=== PATIENT | male | born 1965 | race American Indian/Alaskan Native ===

== ENCOUNTER 2016-11-09 15:51 | Emergency (ER) | payer MEDICARE ==
[2016-11-09 15:56] VITALS: BMI 24.3
[2016-11-09 15:59] VITALS: TEMP 98.2
--- NOTE | 2016-11-09 16:54 | RAD ---
HISTORY: left sided chest pain COMPARISON: No prior. FINDINGS: LUNGS: No active pulmonary disease. PLEURA: No significant pleural effusion identified, no pneumothorax apparent. CARDIOVASCULAR: Normal. OSSEOUS STRUCTURES: No significant abnormalities. VISUALIZED UPPER ABDOMEN: Normal. OTHER FINDINGS: None. IMPRESSION: No active disease.
[2016-11-09 17:16] LABS: BASO # 0.04 K/mm3 (0.0-2.0); BASO % 0.5 % (0.0-3.0); EOS # 0.3 (0.0-0.7); EOS % 4.3 % (1.5-5.0); GRAN # 4.16 (1.4-6.5); GRAN % 55.3 % (50.0-68.0); HEMATOCRIT 42.3 % (42.0-52.0); LYMPH # 2.2 (1.2-3.4); LYMPH % 28.9 % (22.0-35.0); MEAN CELL VOLUME 83.3 fl (80.0-105.0); MEAN CORPUSCULAR HEMOGLOBIN 27.8 pg (25.0-35.0); MEAN CORPUSCULAR HGB CONC 33.3 g/dl (31.0-37.0); MEAN PLATELET VOLUME 9.3 fl (7.0-11.0); MONO # 0.8 (0.1-0.6); WHITE BLOOD COUNT 7.5 10^3/ul (4.5-11.0)
[2016-11-09 17:19] LABS: ALB/GLOB RATIO 1.4 (1.1-1.8); ALKALINE PHOSPHATASE 77 U/L (38-126); ALT/SGPT 37 U/L (7-56); AST/SGOT 46 U/L (17-59); BLOOD UREA NITROGEN 21 mg/dL (7-21); CALCIUM 9.4 mg/dL (8.4-10.5); CARBON DIOXIDE 26 mmol/L (21-33); CHLORIDE 104 mmol/L (98-107); GFR AFRICAN-AMERICAN > 60; GLUCOSE,RANDOM 84 mg/dL (70-110); POTASSIUM 4.3 mmol/L (3.6-5.0); SODIUM 141 mmol/L (132-148); TOTAL PROTEIN 7.9 g/dL (5.8-8.3)
[2016-11-09 17:20] LABS: INR 0.93 (0.93-1.08); PARTIAL THROMBOPLASTIN TIME 27.4 Seconds (23.7-30.8)
[2016-11-09 17:31] LABS: TROPONIN I 0.02 ng/mL
[2016-11-09 17:38] VITALS: RESP 16; O2SAT 96
--- NOTE | 2016-11-09 17:58 | ED PDOC ---
Arrival/HPI - General Chief Complaint: Chest Pain Time Seen by Provider: 11/09/16 16:00 Historian: Patient - History of Present Illness Narrative History of Present Illness (Text): 11/09/16 18:03 Patient is a 51 yo male, denies any past medical history, presents to the ED stating that he has been having left sided chest "pressure" "for a while". Patient states he believes he has been having pain for "about a month". He reports that he frequently goes to the gym and lifts weights. He states "possibly" pain is worse when moving or lifting. States pain is now constant, at times worse with exertion. Denies pleuritic pain. Denies calf pain. Denies abdominal pain or nausea or vomiting. Denies lightheadedness or dizziness. Patient states that he smokes occasionally, and drinks "about once a week". Denies any dark or bloody urine or stool. Time/Duration: Prior to Arrival, > month Past Medical History - Infectious Disease Hx of Infectious Diseases: None - Tetanus Immunization Tetanus Immunization: Unknown - Past Medical History Past Medical History: No Previous - Psychiatric Hx Psychophysiologic Disorder: No Hx Anxiety: No Hx Bipolar Disorder: No Hx Depression: No Hx Emotional Abuse: No Hx Hallucinations: No Hx Panic Disorder: No Hx Post Traumatic Stress Disorder: No Hx Psychosis: No Hx Physical Abuse: No Hx Schizophrenia: No Hx Sexual Abuse: No Hx Substance Use: No - Surgical History Hx Orthopedic Surgery: Yes (left leg) - Anesthesia Hx Anesthesia: Yes Hx Anesthesia Reactions: No Hx Malignant Hyperthermia: No - Suicidal Assessment Feels Threatened In Home Enviroment: No Family/Social History Family/Social History: CAD/AK Smoking Status: cigar Hx Alcohol Use: Yes Frequency of alcohol use: Socially Hx Substance Use: No Hx Substance Use Treatment: No Allergies/Home Meds Allergies/Adverse Reactions: Allergies No Known Allergies Allergy (Verified 08/31/14 09:19) Home Medications: Home Meds Medication Instructions Recorded Confirmed No Known Home Med 11/09/16 11/09/16 Review of Systems - Review of Systems Constitutional: Fatigue. absent: Fevers Eyes: absent: Vision Changes, Eye Pain ENT: absent: Hearing Changes Respiratory: absent: SOB, Cough Cardiovascular: Chest Pain, QU[place]A. absent: Palpitations, Edema, Calf Pain, Orthopnea Gastrointestinal: absent: Abdominal Pain, Nausea, Vomiting Genitourinary Male: absent: Dysuria, Frequency Musculoskeletal: absent: Back Pain Skin: absent: Rash Neurological: absent: Headache, Dizziness, Focal Weakness Endocrine: absent: Polyuria Hemo/Lymphatic: absent: Easy Bleeding Psychiatric: absent: Depression Physical Exam Vital Signs Reviewed: Yes Vital Signs Temp Pulse Pulse Resp BP BP Pulse Ox 11/09/16 18:04 89 176/114 H 11/09/16 17:38 85 16 165/102 H 96 11/09/16 16:42 77 181/102 H 11/09/16 15:58 98.2 F 77 18 182/97 H 99 Temperature: Afebrile Blood Pressure: Hypertensive Pulse: Regular Respiratory Rate: Normal Appearance: Positive for: Non-Toxic Mental Status: Positive for: Alert and Oriented X 3 - Systems Exam Head: Present: Atraumatic, Normocephalic Pupils: Present: PERRL Extroacular Muscles: Present: EOMI Mouth: Present: Moist Mucous Membranes Pharnyx: No: ERYTHEMA Nose (Internal): Present: Normal Inspection Neck: Present: Normal Range of Motion. No: Meningeal Signs Respiratory/Chest: Present: Clear to Auscultation, Tender to Palpation (there is palpable tenderness to left pectoral region with no obvious erythema or edema or deformity). No: Respiratory Distress, Wheezes, Rales, Rhonchi Cardiovascular: Present: Regular Rate and Rhythm. No: Murmurs, Tachycardic Abdomen: Present: Normal Bowel Sounds. No: Tenderness, Distention, Peritoneal Signs Rectal: No: Rectal Tenderness Back: No: CVA Tenderness Upper Extremity: Present: Normal ROM, NORMAL PULSES. No: Cyanosis, Edema Lower Extremity: Present: NORMAL PULSES, Other (scar from prior lower extremity injury, no edema or erythema). No: Edema, CALF TENDERNESS Neurological: Present: Motor Func Grossly Intact, Normal Sensory Function Skin: Present: Warm Psychiatric: Present: Alert, Normal Concentration Medical Decision Making ED Course and Treatment: 11/09/16 18:11 Patient presents with at least one month of left sided chest discomfort, worse when exercising. There is a component of palpable pain but no history of injury or trauma. Patient has not had pain evaluated over the past month, states that he sought evaluation today because symptoms persistent. On initial exam he has strong distal pulses, no respiratory distress or pleuritic pain noted. No leg pain or edema. Initial EKG with no ischemic changes although possible some left ventricular hypertrophy noted. CXR with no pneumothorax or infiltrate. He reports no history of diabetes or known CAD, but states he has not been evaluated by his physician Dr. Enedelia Powell "for a long time". He is noted to be hypertensive in the ED although he DENIES prior history of hypertension. With serial blood pressure measurements he is CONSISTENTLY hypertensive. No headache or neuro deficits noted. Patient states family history is significant for both mother and father , he states his mother " of a heart attack". I have advised admission to the hospital for cardiology evaluation as well as monitoring and treatment of blood pressure in light of current symptoms. Aspirin and lopressor ordered. Recommendations given in laymen's terms, as well as I stressed limitations in cardiac enzymes, EKG and imaging studies in evaluating for cardiac disease, he expresses understanding. He wishes to sign out against medical advice, he states he understands recommendation for ADMISSION and risks of signing out of the hospital against medical advice. Patient has been given opportunity to ask questions and has been advised he may return to ED at any point. He states he is currently comfortable. On exam he remains hypertensive but has initial unremarkable troponin, although I have stressed to him my concern of no known previous history of hypertension and family history that he reports. Risks have been reviewed multiple times with witness present. - Lab Interpretations Lab Results: 11/09/16 16:54 11/09/16 16:54 Lab Results 11/09/16 16:54: PT 10.0, INR 0.93, APTT 27.4 11/09/16 16:54: Alcohol, Quantitative < 10 11/09/16 16:54: Sodium 141, Potassium 4.3, Chloride 104, Carbon Dioxide 26, Anion Gap 15, BUN 21, Creatinine 1.0, Est GFR ( Amer) > 60, Est GFR (Non- Af Amer) > 60, Random Glucose 84, Calcium 9.4, Total Bilirubin 1.0, AST 46, ALT 37, Alkaline Phosphatase 77, Lactate Dehydrogenase 465, Total Creatine Kinase 178, Troponin I 0.02, Total Protein 7.9, Albumin 4.6, Globulin 3.4, Albumin/ Globulin Ratio 1.4 11/09/16 16:54: WBC 7.5, RBC 5.08, Hgb 14.1, Hct 42.3, MCV 83.3, MCH 27.8, MCHC 33.3, RDW 14.0, Plt Count 483 H, MPV 9.3, Gran % 55.3, Lymph % (Auto) 28.9, [place] % (Auto) 11.0 H, Eos % (Auto) 4.3, Baso % (Auto) 0.5, Gran # 4.16, Lymph # 2.2, [place] # 0.8 H, Eos # 0.3, Baso # 0.04 - RAD Interpretation Radiology Orders: 11/09/16 16:21 CHEST PORTABLE [RAD] Stat - EKG Interpretation EKG Interpretation (Text): 11/09/16 18:10 EKG at 16:04 normal sinus rhythm, possible left atrial enlargement, left ventricular hypertrophy Interpreted by ED Physician: Yes Type: 12 lead EKG - Medication Orders Current Medication Orders: Discontinued Medications Aspirin (Aspirin Chewable) 81 mg PO STAT STA Stop: 11/09/16 17:59 Last Admin: 11/09/16 18:04 Dose: 81 mg Metoprolol Tartrate (Lopressor) 25 mg PO STAT STA Stop: 11/09/16 17:59 Last Admin: 11/09/16 18:04 Dose: 25 mg MAR Pulse and Blood Pressure Document 11/09/16 18:04 MR (Rec: 11/09/16 18:04 MR [id number]) Pulse Pulse Rate (60-90 beats/min) 89 Blood Pressure Blood Pressure (100/60-150/90 mm Hg) 176/114 Disposition/Present on Arrival - Present on Arrival Any Indicators Present on Arrival: No History of DVT/PE: No History of Uncontrolled Diabetes: No Urinary Catheter: No History of Decub. Ulcer: No History Surgical Site Infection Following: None - Disposition Have Diagnosis and Disposition been Completed?: Yes Diagnosis: Chest pain, Hypertension Disposition: AGAINST MEDICAL ADVICE Disposition Time: 17:59 Patient Plan: Discharge Patient Problems: Current Active Problems Problem Status Onset Chest pain Acute Hypertension Acute Condition: GOOD Discharge Instructions (ExitCare): Chest Pain (ED) Referrals: Enedelia Powell MD [Primary Care Provider] - Follow up with primary Forms: Friday ([employer])
[2016-11-09 19:20] VITALS: BP 168/104; PULSE 71
--- NOTE | 2016-11-10 09:08 | CARD ---
APPROVED REPORT EKG Measurement Heart [id number] <Conclusion> Normal sinus rhythm Possible Left atrial enlargement Left ventricular hypertrophy Cannot rule out Septal infarct, age undetermined
== END 2016-11-09 19:21 | disposition left against medical advice (07) ==
LOC: ED 15:51
DX: I10 Essential (primary) hypertension (principal); R07.9 Chest pain, unspecified; F17.210 Nicotine dependence, cigarettes, uncomplicated